=== PATIENT | male | born 1990 | race Caucasian/White ===

== ENCOUNTER 2023-04-14 07:57 | Emergency (ER) | payer OTHER ==
[~2023-04-14] VITALS: Ht 177.8 cm; Wt 77.1 kg
[2023-04-14] MEDS ORDERED: TRIAMCINOLONE ACETONIDE 40 MG/ML 1ML VIAL IM ONE (08:00)
[2023-04-14] MEDS ORDERED: KETOROLAC 30MG VIAL (30MG/ML) IM ONE (08:00)
[2023-04-14] MEDS ORDERED: METH-662 PO (08:58)
[2023-04-14] MEDS ORDERED: NAPR-1023 PO (08:58)
[2023-04-14 09:25] VITALS: BP 130/50; PULSE 60; RESP 18; O2SAT 99
== END 2023-04-14 09:22 | disposition home or self-care (01) ==
LOC: EDH 07:57
DX: S39.012A Strain of muscle, fascia and tendon of lower back, initial encounter (principal); W01.0XXA Fall on same level from slipping, tripping and stumbling without subsequent striking against object, initial encounter; Y93.89 Activity, other specified; Y92.89 Other specified places as the place of occurrence of the external cause; Y99.8 Other external cause status
CPT/HCPCS: 99284; 72100; 72220; 96372 ×2; J3301; J1885

== ENCOUNTER 2024-05-05 18:10 | Emergency (ER) | payer OTHER ==
[~2024-05-05] VITALS: Ht 172.7 cm; Wt 70.3 kg
[~2024-05-05 18:10] MED LIST: METH-662 PO; NAPR-1023 PO
[2024-05-05 21:01] VITALS: BP 110/64; PULSE 60; RESP 18; TEMP 98.4; O2SAT 100
== END 2024-05-05 21:04 | disposition home or self-care (01) ==
LOC: EDH 18:10
DX: S09.8XXA Other specified injuries of head, initial encounter (principal); Z79.899 Other long term (current) drug therapy; Z98.890 Other specified postprocedural states; Z88.8 Allergy status to other drugs, medicaments and biological substances; X58.XXXA Exposure to other specified factors, initial encounter; Y93.89 Activity, other specified; Y92.89 Other specified places as the place of occurrence of the external cause; Y99.8 Other external cause status
CPT/HCPCS: 70450